=== PATIENT | male | born 1960 ===

== ENCOUNTER 2023-03-10 09:59 | Outpatient (AMB) | payer BC, SELFPAY ==
--- NOTE | 2023-03-10 10:03 | MHC.OFFVIS ---
Intake Vital Signs 03/10/23 10:13 Height 5 ft 10 in Weight 236 lb BMI 33.9 BP 128/68 Blood Pressure Location Rt brachial Position Sitting Pulse 61 Pulse Source Pulse Oximeter Pulse Oximetry (%) 96 Oxygen Delivery Method Room Air Intake Visit Reasons: [employer]: SILVA - Confirmed Intake Note: [employer] SILVA [employer] Required: No Allergies No Known Allergies Allergy (Verified 03/10/23 10:05) HPI HPI Comments History of Present Illness Details 62 y/o male patient presents for new in-person visit for sleep consultation. Pt reports he was diagnosed with SILVA and tried CPAP. He could not use CPAP nightly due to allergy symptoms and difficulty breathing. Pt returned CPAP but his SILVA symptoms has worsened. He has another sleep study scheduled on May 12, and wants [facility] evaluation. Pt also has difficulty falling asleep and staying sleep. Pt reports excessive daytime sleepiness, having difficulty to stay awake during daytime. Sleep questionnaire: Have you ever been diagnosed with a sleep disorder? Yes, SILVA. Have you ever had a sleep study in the past? Yes. Have you ever been treated for a sleep disorder? CPAP, but not tolerated. Do you take medications for a sleep disorder? trazodone intermittently. Do you snore? Yes. Do you wake up gasping at night? No. Do you have episodes of apneas? Yes. If yes, are they witnessed? Yes. Do you have episodes of nocturnal chest pain or dyspnea? Yes. Do you have difficulty initiating sleep? Yes. Do you have difficulty maintaining sleep? Yes. Do you wake up tired? Yes. Do you have headaches upon awakening? No. Do you wake up with dry mouth or throat? Yes, sometimes. Do you have GERD? Yes. Do you have nocturia? Yes. Do you have nocturnal leg cramps? No. Do you have symptoms of restless legs? No. Do you act out your dreams? No. Sleep hygiene questionnaire: What is your usual sleep routine? Usual bedtime is at 10:30 -11 pm; Usual wake up time is at 5:30- 6 am. Do you take naps? After work, 15-20 min Is your sleep environment cool, dark, and quiet? Yes. Do you exercise? No. Do you take caffeine or other stimulants? No. Do you use electronics in bed? Yes. What is your work schedule? 6:30 am to 4 pm Hypersomnolence questionnaire: Do you have daytime tiredness or fatigue? Yes. Do you easily fall asleep when inactive? Yes. Have you ever had episodes of sudden weakness? No. Have you ever had episodes of sudden weakness associated with strong emotions? No. PFSH Surgical History (Updated 03/10/23 @ 10:10 by Hannah Man CMA) Previous back surgery H/O total knee replacement Family History (Updated 03/10/23 @ 10:12 by Hannah aMn CMA) Father Cancer HTN (hypertension) Heart disease Mother HTN (hypertension) Heart disease Social History (Updated 03/10/23 @ 10:13 by Hannah Man CMA) Alcohol intake: current Alcohol intake frequency: holidays/special occasions only Patient Tobacco Use Status: Former Tobacco user Use of substances other than those prescribed or required for medical reasons: No Review of Systems Const All systems reviewed & are unremarkable except as noted in HPI and below ENT Reports Normal hearing present Neuro Reports Normal hearing present Physical Exam Vital Signs: Last Vital Signs Pulse 61 03/10/23 10:13 BP 128/68 03/10/23 10:13 Pulse Ox 96 03/10/23 10:13 Oxygen Delivery Method Room Air 03/10/23 10:13 BMI result Body Mass Index 33.9 Const General: cooperative and tired appearing Nutritional Appearance: obese Orientation/consciousness: patient oriented x3 Neck Neck: Yes full ROM and Yes supple Resp Effort & Inspection: normal respiratory effort and able to speak in complete sentences Neuro General: patient oriented x3, gait normal and moves all extremities Cranial nerves: Yes Bilaterally intact EOM present, Yes Normal facial strength present, Yes Midline tongue present, Yes Symmetric palate elevation present, Yes Normal hearing present, Yes Ability to bilaterally rotate head present and Yes Ability to bilaterally elevate shoulders present Cognition (Neuro): normal cognition Gait exam (Neuro): Normal gait present Motor exam (neuro): 5/5 motor strength present throughout, Pronator motor function not present and no tremor noted Psych Appearance: grossly normal Mental Status: mental status grossly normal Speech and movement: Normal speech and movement present Affect: normal affect Attitude: cooperative Assessment & Plan Assessment & Plan (1) SILVA (obstructive sleep apnea): Comment: Not tolerated CPAP. Pt wants to do [facility]. Code(s): G47.33 - Obstructive sleep apnea (adult) (pediatric) (2) Insomnia: Code(s): G47.00 - Insomnia, unspecified Plan Pt's sleep study scheduled on 05/12/23. Advised patient to undergo sleep study and will refer patient to [facility] for [facility] evaluation. Sleep hygiene education provided. Continue to take trazodone for sleep. Coding Level of Care Code New Pt Level 3 (36979) Diagnoses SILVA (obstructive sleep apnea) G47.33 Insomnia G47.00
[2023-03-10 10:13] VITALS: BP 128/68; PULSE 61; O2SAT 96; BMI 33.9
== END 2023-03-10 10:48 | disposition home or self-care (01) ==
PROVIDERS: PCP Internal Medicine; Visit Provider Nurse Practitioner Family
DX: G47.33 Obstructive sleep apnea (adult) (pediatric) (principal); G47.00 Insomnia, unspecified
CPT/HCPCS: 99203

== ENCOUNTER → 2023-03-10 09:59 | Outpatient (BNVA) | payer BC, SELFPAY | PROVIDERS: PCP Internal Medicine; Visit Provider Nurse Practitioner Family ==